=== PATIENT | female | born 1970 | race Caucasian/White ===

== ENCOUNTER 2020-01-29 12:12 | Inpatient (IN) | payer MEDICAID ==
[~2020-01-29] VITALS: Ht 162.6 cm; Wt 60.3 kg
[~2020-01-29 12:12] MED LIST: ACAM333T7 PO; CHOL5000 PO; CYMBALTA; DISU500T PO; DULO30CA2 PO; DULO30CA44 PO; FERR-46 PO; GABA300C10 PO; LEVE500T53 PO; LEVE500T8 PO; MULT-478 PO; NICO-486 TD; ONDA4TAB10 PO; OXYC-306 PO; OXYC-307; OXYGEN; PREDNISONE PO; PREG75CA PO; PROPANOLOL; QUET300T5 PO; SEROQUIL; TIOT18CA INH; TIOT4MIS5 INH; TRAMADOL
[2020-01-29 13:05] VITALS: BP_SYST 101; BP_SYST 112; BP_DIAS 69; BP_DIAS 74
[2020-01-29] MEDS ORDERED: DOCUSATE 100 MG CAPSULE PO PRN (13:30)
[2020-01-29] MEDS ORDERED: POLYETHYLENE GLYCOL 17 GM PACKET PO PRN (13:30)
[2020-01-29] MEDS ORDERED: ACETAMINOPHEN 325 MG TABLET PO PRN (13:30)
[2020-01-29] MEDS ORDERED: ONDANSETRON ODT 4 MG PO PRN (13:30)
[2020-01-29] MEDS ORDERED: PLEASE ENTER HEIGHT AND WEIGHT MC SCH (13:30)
[2020-01-29] MEDS ORDERED: BISACODYL 10 MG SUPP PR PRN (13:30)
[2020-01-29] MEDS ORDERED: DIVA-61 PO (14:33)
[2020-01-29] MEDS ORDERED: LIDO1ADH68 TD (14:33)
[2020-01-29] MEDS ORDERED: TRAM50TA2 PO (14:33)
[2020-01-29] MEDS ORDERED: QUET25TA5 PO (14:33)
[2020-01-29] MEDS ORDERED: OMEP-110 PO (14:33)
[2020-01-29] MEDS ORDERED: NICO2GUM41 PO (14:33)
[2020-01-29] MEDS ORDERED: ALBU8.5H8 INH (14:33)
[2020-01-29] MEDS ORDERED: GABA300C PO (14:33)
[2020-01-29] MEDS ORDERED: ACYC-114 PO (14:33)
[2020-01-29] MEDS ORDERED: LEVE500T8 PO (14:33)
[2020-01-29] MEDS ORDERED: LORazepam 0.5MG TABLET ONE (15:13)
[2020-01-29] MEDS ORDERED: ACAMPROSATE 333 MG TABLET.DR ONE (15:14)
[2020-01-29] MEDS ORDERED: ACYCLOVIR 400 MG TABLET ONE (15:14)
[2020-01-29] MEDS: ACYCLOVIR 200 MG CAPSULE PO SCH ×2 (15:15→19:59)
[2020-01-29] MEDS: LORazepam 0.5MG TABLET PO PRN ×2 (15:15→20:17)
[2020-01-29] MEDS: ACAMPROSATE 333 MG TABLET.DR PO SCH ×2 (15:15→19:59)
[2020-01-29] MEDS ORDERED: ALBUTEROL HFA 90 MCG/SPRAY INH PRN (16:30)
[2020-01-29] MEDS ORDERED: ACYCLOVIR 400 MG TABLET PO PRN (16:30)
[2020-01-29] MEDS ORDERED: NICOTINE GUM 2 MG BC PRN (16:30)
[2020-01-29] MEDS: GABAPENTIN 300 MG CAPSULE PO SCH ×2 (16:53→19:59)
[2020-01-29] MEDS ORDERED: FLU VACC QS2020-21(6MOS UP)/PF 60MCG/0.5 ML SYR IM ONE (18:30)
[2020-01-29 18:31] VITALS: BP 118/77
[2020-01-29] MEDS: DIVALPROEX 500 MG TABLET.DR PO SCH (19:59)
[2020-01-29] MEDS: LEVETIRACETAM 500 MG TABLET PO SCH (19:59)
[2020-01-29] MEDS: QUETIAPINE 25MG TABLET PO SCH (20:00)
[2020-01-29] MEDS ORDERED: TIOTROPIUM BROMIDE 18 MCG/INH INH SCH (21:00)
[2020-01-30 06:26] LABS: CHOL/HDL RATIO 3.7; FREE T4 (FREE THYROXINE) 0.77 ng/dL (0.76-1.46); LDL/HDL RATIO 2.4 (0.5-3.0)
[2020-01-30 07:04] VITALS: BP 112/75
[2020-01-30] MEDS: ACYCLOVIR 200 MG CAPSULE PO SCH ×3 (07:24→20:27)
[2020-01-30] MEDS: OMEPRAZOLE 20 MG CAPSULE.DR PO SCH (07:25)
[2020-01-30] MEDS: NICOTINE 14MG/24 HR PATCH.TD24 TD SCH (07:25)
[2020-01-30] MEDS: TIOTROPIUM BROMIDE 18 MCG/INH INH SCH (07:25)
[2020-01-30] MEDS: GABAPENTIN 300 MG CAPSULE PO SCH ×3 (07:26→20:16)
[2020-01-30] MEDS: DIVALPROEX 500 MG TABLET.DR PO SCH ×2 (07:26→20:16)
[2020-01-30] MEDS: ACAMPROSATE 333 MG TABLET.DR PO SCH ×3 (07:26→20:16)
[2020-01-30] MEDS: LORazepam 0.5MG TABLET PO PRN ×3 (07:26→20:16)
[2020-01-30] MEDS: LEVETIRACETAM 500 MG TABLET PO SCH ×2 (07:26→20:17)
[2020-01-30 19:03] VITALS: BP 92/66
[2020-01-30] MEDS: DOXEPIN 25 MG CAPSULE PO SCH (20:17)
[2020-01-30] MEDS: QUETIAPINE 25MG TABLET PO SCH (20:17)
[2020-01-31] MEDS: LEVETIRACETAM 500 MG TABLET PO SCH ×2 (08:19→20:34)
[2020-01-31] MEDS: DIVALPROEX 500 MG TABLET.DR PO SCH ×2 (08:19→20:34)
[2020-01-31] MEDS: ACAMPROSATE 333 MG TABLET.DR PO SCH ×3 (08:19→20:34)
[2020-01-31] MEDS: ACYCLOVIR 200 MG CAPSULE PO SCH ×3 (08:19→20:33)
[2020-01-31] MEDS: OMEPRAZOLE 20 MG CAPSULE.DR PO SCH (08:20)
[2020-01-31] MEDS: GABAPENTIN 300 MG CAPSULE PO SCH ×3 (08:20→20:34)
[2020-01-31] MEDS: NICOTINE 14MG/24 HR PATCH.TD24 TD SCH (08:22)
[2020-01-31] MEDS: LORazepam 0.5MG TABLET PO PRN ×3 (08:27→20:34)
[2020-01-31] MEDS: TIOTROPIUM BROMIDE 18 MCG/INH INH SCH (08:44)
[2020-01-31 09:18] VITALS: BP 99/77
[2020-01-31 19:57] VITALS: BP 107/72
[2020-01-31] MEDS: DOXEPIN 25 MG CAPSULE PO SCH (20:31)
[2020-01-31] MEDS: QUETIAPINE 25MG TABLET PO SCH (20:34)
[2020-01-31] MEDS: PRAZOSIN 1 MG CAPSULE PO SCH (20:50)
[2020-02-01 07:30] VITALS: BP 93/66
[2020-02-01] MEDS: GABAPENTIN 300 MG CAPSULE PO SCH ×3 (07:54→20:18)
[2020-02-01] MEDS: OMEPRAZOLE 20 MG CAPSULE.DR PO SCH (07:54)
[2020-02-01] MEDS: LORazepam 0.5MG TABLET PO PRN ×2 (07:54→15:42)
[2020-02-01] MEDS: LEVETIRACETAM 500 MG TABLET PO SCH ×2 (07:54→20:17)
[2020-02-01] MEDS: DIVALPROEX 500 MG TABLET.DR PO SCH ×2 (07:54→20:18)
[2020-02-01] MEDS: ACAMPROSATE 333 MG TABLET.DR PO SCH ×3 (07:54→20:19)
[2020-02-01] MEDS: NICOTINE 14MG/24 HR PATCH.TD24 TD SCH (07:55)
[2020-02-01] MEDS: ACYCLOVIR 200 MG CAPSULE PO SCH ×3 (07:55→20:18)
[2020-02-01] MEDS: TIOTROPIUM BROMIDE 18 MCG/INH INH SCH (08:00)
[2020-02-01 19:53] VITALS: BP 94/61
[2020-02-01] MEDS: PRAZOSIN 1 MG CAPSULE PO SCH (20:18)
[2020-02-01] MEDS: DOXEPIN 25 MG CAPSULE PO SCH (20:18)
[2020-02-01] MEDS: QUETIAPINE 25MG TABLET PO SCH (20:19)
[2020-02-01 20:26] VITALS: BP 104/67
[2020-02-02 07:24] VITALS: BP 98/61
[2020-02-02] MEDS: OMEPRAZOLE 20 MG CAPSULE.DR PO SCH ×2 (08:15→09:30)
[2020-02-02] MEDS: ACAMPROSATE 333 MG TABLET.DR PO SCH (08:15)
[2020-02-02] MEDS: GABAPENTIN 300 MG CAPSULE PO SCH (08:15)
[2020-02-02] MEDS: LEVETIRACETAM 500 MG TABLET PO SCH (08:16)
[2020-02-02] MEDS: DIVALPROEX 500 MG TABLET.DR PO SCH (08:16)
[2020-02-02] MEDS: ACYCLOVIR 200 MG CAPSULE PO SCH (08:17)
[2020-02-02] MEDS: NICOTINE 14MG/24 HR PATCH.TD24 TD SCH (08:17)
[2020-02-02] MEDS: TIOTROPIUM BROMIDE 18 MCG/INH INH SCH (08:56)
[2020-02-02] MEDS ORDERED: OMEP-110 PO (12:19)
[2020-02-02] MEDS ORDERED: TIOT18CA INH (12:19)
[2020-02-02] MEDS ORDERED: ACAM333T7 PO (12:19)
[2020-02-02] MEDS ORDERED: NICO-486 TD (12:19)
[2020-02-02] MEDS ORDERED: LEVE500T53 PO (12:19)
[2020-02-02] MEDS ORDERED: QUET25TA7 PO (12:19)
[2020-02-02] MEDS ORDERED: DIVA-61 PO (12:19)
[2020-02-02] MEDS ORDERED: DOXE25CA PO (12:19)
[2020-02-02] MEDS ORDERED: PRAZ1CAP2 PO (12:19)
== END 2020-02-02 12:52 | disposition home or self-care (01) | DRG 753 ==
LOC: 3E 13:05
PROVIDERS: ADMIT Psychiatry & Neurology Psychosomatic Medicine; ATTEND Psychiatry & Neurology Psychosomatic Medicine
DX: F31.30 Bipolar disorder, current episode depressed, mild or moderate severity, unspecified (principal); R45.851 Suicidal ideations; F10.20 Alcohol dependence, uncomplicated; F12.90 Cannabis use, unspecified, uncomplicated; F17.210 Nicotine dependence, cigarettes, uncomplicated; Z88.8 Allergy status to other drugs, medicaments and biological substances; F43.10 Post-traumatic stress disorder, unspecified; G40.909 Epilepsy, unspecified, not intractable, without status epilepticus; G47.00 Insomnia, unspecified; G89.29 Other chronic pain; J44.9 Chronic obstructive pulmonary disease, unspecified; K21.9 Gastro-esophageal reflux disease without esophagitis; M19.90 Unspecified osteoarthritis, unspecified site; Z79.899 Other long term (current) drug therapy; Z98.84 Bariatric surgery status; Z90.49 Acquired absence of other specified parts of digestive tract
CPT/HCPCS: 36415; 80061; 84439; 84443; 84702; 90686; 93005

== ENCOUNTER 2020-12-28 10:20 | Emergency (ER) | payer MEDICAID ==
[~2020-12-28] VITALS: Ht 162.6 cm; Wt 57.7 kg
[~2020-12-28 10:20] MED LIST changes: +ACYC-40 PO; +ALBU8.5H8 INH; +DIVA-61 PO; +DOXE25CA PO; +GABA300C PO; +LIDO1ADH68 TD; +NICO2GUM41 PO; +OMEP-110 PO; -OXYC-306 PO; -OXYC-307; +OXYC-501; +OXYC1TAB16 PO; +PRAZ1CAP2 PO; +QUET25TA5 PO; +QUET25TA7 PO; +TRAM50TA2 PO
--- NOTE | 2020-12-28 10:28 | NUR ---
PT BIB EMS DUE TO DRINKING ALCOHOL TODAY (177 DAYS SOBER). PT STATES SHE ALSO LOST HER TASTE AND SMELL RECENTLY AND LIVES IN A [facility] AND THINKS SHE MAY HAVE HAD CONTACT WITH SOMEONE WITH [employer]. PT C/O NAUSEA, NO VOMITING, DENIES PAIN THAT ISN'T CHRONIC. PT WANTING TO SEE HER [facility] [employer] [facility] FOR REHAB. PT CONNECTED TO MONITORING. RAILS UP. CALL LIGHT WITHIN REACH. AWAITING PHYSICIAN ASSESSMENT AND ORDERS.
[2020-12-28 12:45] VITALS: BP 142/88
--- NOTE | 2020-12-28 13:01 | NUR ---
PT REC'VD DISCHARGE INSTRUCTIONS AND EDUCATION. PT HAD NO FURTHER QUESTIONS. PT REC'VD [facility] TO [facility] FOR FURTHER DETOX. PT AMBULATED TO TX AREA, STEADY GAIT.
== END 2020-12-28 13:04 | disposition home or self-care (01) ==
LOC: ED 11:02
DX: F10.220 Alcohol dependence with intoxication, uncomplicated (principal); J44.9 Chronic obstructive pulmonary disease, unspecified; G40.909 Epilepsy, unspecified, not intractable, without status epilepticus; Y90.0 Blood alcohol level of less than 20 mg/100 ml
CPT/HCPCS: 99283